=== PATIENT | female | born 1985 | race Caucasian/White ===

== ENCOUNTER → 2016-07-15 | Outpatient (CLI) | payer OTHER ==
[~2016-07-15] MED LIST: IBUP600T44 PO; MAGNSUS5; MTR600X PO; OXYC-57 PO; PRENTAB26 PO
[2016-07-15 20:44] LABS: URINE APPEARANCE CLEAR (CLEAR); URINE BILIRUBIN NEG (NEG); URINE COLOR YELLOW; URINE EPITHELIAL CELL AUTO >30 /lpf (0-5); URINE NITRITE NEG (NEG); UROBILINOGEN NEG (NEG)
[2016-07-15 20:56] LABS: MANUAL MICROSCOPIC REQUIRED? NO; REVIEW REQ? YES
== END | disposition home or self-care (01) ==
LOC: C.LABSPEC 20:17
PROVIDERS: ATTEND Obstetrics & Gynecology
DX: Z34.83 Encounter for supervision of other normal pregnancy, third trimester (principal); R80.9 Proteinuria, unspecified

== ENCOUNTER → 2016-07-22 | Outpatient (CLI) | payer OTHER ==
[2016-07-22 15:16] LABS: BASO % 0.2 %; BASO ABS # 0.02 K/uL (0-0.2); EOS % 1.2 %; HEMATOCRIT 36.3 % (37-47); IG% 0.5 %; LYMPH % 17.3 %; LYMPH ABS # 2.01 K/uL (1.2-3.4); MEAN CELL VOLUME 90.8 fL (80-100); MEAN CORPUSCULAR HEMOGLOBIN 31.3 pg (25-34); MEAN PLATELET VOLUME 10.4 fL (7.4-10.4); MONO % 7.3 %; NEUT % 73.5 %; PLATELET COUNT 307 K/uL (130-400); WHITE BLOOD COUNT 11.65 K/uL (4.8-10.8)
[2016-07-22 15:22] LABS: COMPLETE YES; MEAN CORPUSCULAR HGB CONC 34.4 g/dl (32-36)
[2016-07-22 15:43] LABS: ALB/GLOB RATIO 0.7 (0.9-2); ALKALINE PHOSPHATASE 162 U/L (45-117); ALT/SGPT 18 U/L (12-78); AST/SGOT 14 U/L (15-37); BLOOD UREA NITROGEN 5 mg/dl (7-18); BUN/CREATININE RATIO 10.8 (10-20); CARBON DIOXIDE 22 mmol/L (21-32); CHLORIDE 105 mmol/L (98-107); GLUCOSE 99 mg/dl (70-99); POTASSIUM 3.6 mmol/L (3.5-5.1); SODIUM 139 mmol/L (136-145); URIC ACID 3.4 mg/dl (2.6-7.2)
== END | disposition home or self-care (01) ==
LOC: C.LAB1850 14:36
PROVIDERS: ATTEND Obstetrics & Gynecology
DX: O13.9 Gestational [pregnancy-induced] hypertension without significant proteinuria, unspecified trimester (principal); Z3A.00 Weeks of gestation of pregnancy not specified

== ENCOUNTER 2016-08-07 10:26 | Inpatient (IN) | payer OTHER ==
[2016-08-07] VITALS (11 sets, daily range): BP systolic 118–142; BP diastolic 64–91; PULSE 72–78; TEMP 36.4–36.7; O2SAT 97–100; Ht 154.9 cm; Wt 60.0 kg
[~2016-08-07] VITALS: Ht 154.9 cm; Wt 60.0 kg
[~2016-08-07 10:26] MED LIST changes: -MTR600X PO; -PRENTAB26 PO
[2016-08-07] MEDS ORDERED: PRENTAB26 PO (10:52)
[2016-08-07] MEDS ORDERED: LACTATED RINGER'S 1000ML 1,000 ML IV ONE (11:30)
[2016-08-07] MEDS ORDERED: CITRIC ACID/SODIUM CITRATE 15 ML UDC PO ONE (11:30)
[2016-08-07] MEDS ORDERED: OXYTOCIN INJ 10 UNITS/ML VIAL ONE (11:36)
[2016-08-07] MEDS ORDERED: MoRPHine SULFATE PF 1 MG/ML 10 ML AMP/VIAL ONE (11:36)
[2016-08-07] MEDS ORDERED: FENTANYL CITRATE INJ 50 MCG/1 ML 2 ML VIAL ONE (11:36)
[2016-08-07] MEDS ORDERED: CEFAZOLIN IV 2,000 MG in DEXTROSE 5% 50ML 50 ML IV SCH (11:45)
--- NOTE | 2016-08-07 11:47 | Medical Student: [facility] ---
Med Student History & Physical Date of Service Aug 07, 2016. Chief Complaint R/O Rupture Of Membranes History of Present Illness Source: patient, partner 31 year old , CUFF RUNNER 08/10 by dating US, 39 weeks 4 days GA, here for premtaure rupture of membranes. Yesterday, patient experienced lower abdominal cramping. Around 0400 on 08/07, the patient felt a gush of fluid from her vagina and came today for possible PROM. Current lower abdominal pain level is 5/10. Patient did eat a full breakfast at 0730 today. Patient denies PALOMINO, blurry vision , dizziness, leg pain, leg redness, leg swelling, N/V, and dysuria. At her visit on 08/04/16, her cervix was closed and the baby was vertex down. Current history is significant for elevated blood pressure at 2 visits and a failed glucose screening at 28 weeks GA. Patient never completed a 2 hour glucose tolerance test. Home glucose tests were WNL. She was not treated as GDM. Patient did not receive flu or Tdap immunizations during . Patient is currently feeling movement and contractions. Patient feels fluid leaks, but no bleeding. Past medical history is insignificant. Gynecological history is insignificant. No history of abnormal pap smears or STDs. Obstetrical history is significant for preeclampsia and breech position in last resulting in C/S at 38 weeks GA. Patient's blood type is O+, negative antibody screen, rubella immune, VDRL/RPR nonreactive, negative HbsAG and HiV, negative G & C, and negative GBS culture OB History Obstetrical history significant for last complicated by preeclampsia and and breech position. This resulted in a C/S at 38 weeks GA in 2007. Baby was 7 lbs 9 oz. INFORMATION SYSTEMS ARCHITECT History Gynecologic history is insignificant. No history of abnormal pap smears or STDs. Menarche began at age 12 or 13. Menstruation occurs every 28 days and last 5-7 days. No excessive bleeding or cramping during periods. Past Medical History No past medical history Past Surgical History Past surgical history significant for C/S in 2007 and appendectomy in 2009. Family History Family history is insignificant Social History Smoking Status: Never Smoker Smokeless Tobacco Use: No Alcohol Use: none Drug Use: none Marital Status: Housing status: lives with significant other Occupational Status: unemployed Allergies Coded Allergies: No Known Allergies (Verified , 08/07/16) Home Medications Multivit/Min/Iron/Fol Ac/Pren ( Vitamin), 1 TAB PO DAILY Review of Systems Constitutional: No fever Eyes: No worsening of vision ENT: No hearing loss Respiratory: No cough, No shortness of breath Cardiovascular: No chest pain, No palpitations Abdomen: + pain (5/10 lower abdominal pain ), No constipation, No diarrhea, No nausea, No vomiting Genitourinary - Female: No dysuria Integumentary: No rash Physical Exam General Appearance: WD/WN, no apparent distress Respiratory/Chest: lungs clear, normal breath sounds, no respiratory distress Cardiovascular: regular rate, rhythm, no edema, no gallop, no JVD, no murmur Extremities: normal inspection, no calf tenderness, no pedal edema Skin: normal color, warm/dry cervical exam: fingertip dilated, 50% effaced, -3 station Neuro: bicep and patellar reflexes b/l 2 + Monitoring External Monitor: heart tracing category 1: HR 142, moderate variability, present accelerations, absent variable, late or early decelerations Tocodynamometer: contractions every 4 minutes Assessment and Plan 31 year old , CUFF RUNNER 08/10 by dating US, 39 weeks 4 days GA, here for premtaure rupture of membranes. Sterile speculum pooling, nitrazine test, and ferning were all positive. PROM occured at 0430 this morning. Membranes have been rupture for 7 hours. Patient is currently in latent stage 1 of labor. Patient and decided to go forward with a C/S instead of a . All risk ands complications were discussed and understood. Anesthesia agreed to proceed now despite full breakfast at 0730.
[2016-08-07] MEDS ORDERED: ATROPINE SULFATE 0.1 MG/ML 5ML SYR IV PRN (12:00)
[2016-08-07] MEDS ORDERED: FENTANYL CITRATE INJ 50 MCG/1 ML 2 ML VIAL IV PRN (12:00)
[2016-08-07] MEDS ORDERED: ONDANSETRON INJ 2 MG/ML 2 ML VIAL IV PRN ×2 (12:00→16:15)
[2016-08-07] MEDS ORDERED: EpHEDrine SULFATE INJ 50 MG/ML AMP IV PRN ×2 (12:00→14:00)
[2016-08-07 12:07] LABS: BASO % 0.3 %; BASO ABS # 0.03 K/uL (0-0.2); COMPLETE YES; EOS % 0.8 %; HEMATOCRIT 35.4 % (37-47); IG% 0.3 %; LYMPH % 19.3 %; LYMPH ABS # 1.89 K/uL (1.2-3.4); MEAN CELL VOLUME 90.5 fL (80-100); MEAN CORPUSCULAR HEMOGLOBIN 30.9 pg (25-34); MEAN CORPUSCULAR HGB CONC 34.2 g/dl (32-36); MEAN PLATELET VOLUME 10.3 fL (7.4-10.4); MONO % 8.1 %; NEUT % 71.2 %; PLATELET COUNT 299 K/uL (130-400); RED BLOOD COUNT 3.91 M/uL (4.2-5.4); WHITE BLOOD COUNT 9.79 K/uL (4.8-10.8)
--- NOTE | 2016-08-07 12:07 | HISTORY & PHYSICAL EXAMINATION ---
DATE OF ADMISSION: 08/07/2016 ADMISSION DIAGNOSES: 1. Intrauterine at 39 and 4/7th weeks. 2. History of previous section for preeclampsia and breech. 3. Premature spontaneous rupture of membranes. HISTORY OF PRESENT ILLNESS: Petra is a 31-year-old 2, para 1-0-0-1 with an EDC of 08/10/2016 based on an [facility] who presents to labor and delivery complaining of rupture of membranes at 4:00, she has continued to leak clear fluid. No vaginal bleeding. She notices some mild cramping, but no significant contractions and good movement. This has been essentially uncomplicated. Her previous section was for breech presentation with preeclampsia at admission. The patient did fail her 28-week glucose tolerance since with the result of 152, but never performed a 2-hour glucose tolerance test. She notes that she had bought a monitor and was checking her sugars at home and they were "normal". PAST MANAGER INSIDE HISTORY: As noted above. This was a section documented to be primary low transverse to deliver a 6+ pound baby, performed here by the [facility] doctors. ALLERGIES: No known drug allergies. MEDICATIONS: vitamin. PAST MEDICAL HISTORY: She is healthy. Denies thyroid disease, asthma, heart disease, heart murmur, diabetes, kidney or liver problems. She has a history of chickenpox. PAST SURGICAL HISTORY: Includes 2007, appendectomy in 2009. SOCIAL HISTORY: The patient denies tobacco, alcohol or drug use, lives with her significant other and son. PHYSICAL EXAMINATION: GENERAL: This is a well-developed, well-nourished white female, in no acute distress. VITAL SIGNS: She is afebrile and vital signs are stable. ABDOMEN: Soft, gravid and nontender. EXTREMITIES: Benign. PELVIS: Sterile speculum exam shows gross pooling, positive ferning and positive nitrazine. Tocodynamometer shows her brook[place] irregularly. External monitor shows the fetus to be in the 130s with moderate variability, accels to 150 and no decels. Cervical exam reveals the cervix to be fingertip, 50%, minus 3, mid and moderate. LABORATORY DATA: Blood type O positive, antibody negative, rubella immune, RPR nonreactive, hepatitis B negative, HIV negative, chlamydia and gonorrhea cultures negative. Group B strep negative. Sixteen week GTT 107, 28-week GTT 152. ASSESSMENT: This is a 31-year-old white female 2, para 1-0-0-1 who presents at 39 and 4/7th weeks with gross premature rupture of membranes. There is no evidence of labor. The fetus is category 1. The patient has a history of a previous section for breech presentation at 37 weeks for preeclampsia. Unfortunately, the patient has ruptured her membranes well prior to labor. She has been ruptured for almost 8 hours now and she is not bro[place] significantly and her cervix is not significantly changed from her previous exam. We discussed the options which would include proceeding now with a repeat section versus expectant management. We discussed the risks of expectant management including the risks of infection, the potential of not knowing when or if her body will kick into labor, the potential need for Pitocin, the risks of a trial of labor and the back including 1% risk of uterine rupture. We discussed the risks of section including anesthesia, bleeding requiring transfusion, infection, poor wound healing, damage to surrounding structures including bowel, bladder, vessels, nerves and ureters that may require further surgery, hospitalization or intervention as well as the other risks associated with surgery including heart attack, blood clot, stroke or . After weighing all of these options, the patient and her have decided to proceed with delivery. Consent was reviewed and signed. Anesthesia was notified. The patient will be admitted and will proceed with repeat section.
[2016-08-07] MEDS ORDERED: METHYLERGONOVINE MALEATE 0.2 MG/ML AMP ONE (13:06)
[2016-08-07] MEDS ORDERED: METHYLERGONOVINE MALEATE 0.2 MG/ML AMP IM ONE (13:06)
[2016-08-07] MEDS ORDERED: DIPHTHERIA/TETANUS/PERTUSSIS 0.5 ML SYR/VIAL IM. ONE (13:30)
[2016-08-07] MEDS ORDERED: SUPERCREAM 0.870 % 15GM JAR EXT PRN (13:30)
[2016-08-07] MEDS ORDERED: LANOLIN OINT EXT PRN ×2 (13:30)
[2016-08-07] MEDS ORDERED: HYDROCORTISONE ACETATE 25 MG SUPP PR PRN (13:30)
[2016-08-07] MEDS ORDERED: IBUPROFEN 600 MG TAB PO PRN (13:30)
[2016-08-07] MEDS ORDERED: DC PCA PRN (13:30)
[2016-08-07] MEDS ORDERED: BENZOCAINE 20% AER SPR 82.5 GM CAN EXT PRN (13:30)
--- NOTE | 2016-08-07 13:36 | [facility] Post Operative Brief Note ---
Immediate Operative Summary Operative Date Aug 07, 2016. Pre-Operative Diagnosis 1. Intrauterine at 39 4/7 Weeks 2. Premature Rupture of Membranes 3. Previous Caesarean Section 4. Desires Repeat Caesarean Section Post-Operative Diagnosis Same as Preop Procedure(s) Performed Live Female at [address] Peraza Rag Washer Surgeon(s) Gwen Keller RN Estimated Blood Loss 600 ml Findings viable female infant, nl utx/tubes/ovs bilaterally Fluids (cc crystalloids) 1600cc Specimens Placenta (Hold) Cord Blood Drains araiza Anesthesia spinal Complication(s) None Disposition L&D
[2016-08-07] MEDS ORDERED: OXYTOCIN INJ 20 UNITS in LACTATED RINGER'S 1000ML 1,000 ML IV SCH (13:45)
[2016-08-07] MEDS ORDERED: NALOXONE HCL INJ 0.08 MG in SYRINGE 1.8 ML IV PRN (13:50)
[2016-08-07] MEDS ORDERED: LACTATED RINGER'S 1000ML 500 ML IV PRN (13:50)
[2016-08-07] MEDS ORDERED: SODIUM CHLORIDE 0.9% 1000ML 1,000 ML IV PRN (13:50)
[2016-08-07] MEDS ORDERED: NALOXONE HCL INJ 1 MG in SODIUM CHLORIDE 0.9% 1000ML 1,000 ML IV PRN (13:50)
--- NOTE | 2016-08-07 13:51 | Anesthesiology Progress Note ---
Anesthesia Post Op Note Date & Time Aug 07, 2016 at 13:51 Notes Mental Status: alert / awake / arousable, participated in evaluation Pt Amnestic to Procedure: Yes Nausea / Vomiting: adequately controlled Pain: adequately controlled Airway Patency, RR, SpO2: stable & adequate BP & HR: stable & adequate Hydration State: stable & adequate Neuraxial Anesthesia: was administered, sensory block is resolving Anesthetic Complications: no major complications apparent
[2016-08-07] MEDS ORDERED: MoRPHine SULFATE PF 1 MG/ML 10 ML AMP/VIAL EPI PRN (14:00)
[2016-08-07] MEDS ORDERED: MEPERIDINE HCL 25 MG/ML CARP IV PRN (14:00)
[2016-08-07] MEDS ORDERED: NALOXONE HCL 0.4 MG/1 ML VIAL/CARP IV PRN (14:00)
[2016-08-07] MEDS ORDERED: DiphenhydrAMINE HCL 50 MG/ML VIAL IV PRN (14:00)
[2016-08-07] MEDS ORDERED: NO NARCOTICS OR SEDATIVES SCH (14:00)
[2016-08-07] MEDS ORDERED: NALBUPHINE HCL INJ 10 MG/ML AMP IV PRN (14:00)
[2016-08-07] MEDS ORDERED: KETOROLAC TROMETHAMINE 30 MG/ML VIAL IV. PRN (14:00)
--- NOTE | 2016-08-07 14:50 | Medical Student: [facility] ---
Immediate Operative Summary Operative Date Aug 07, 2016. Pre-Operative Diagnosis Term Intrauterine at 39 + 4 weeks and PROM Post-Operative Diagnosis same Procedure(s) Performed Repeat Low Transverse Section Surgeon Dr. Peraza Concrete Products Dispatcher Surgeon(s) Gwen Keller RN Estimated Blood Loss 600 mL Findings Viable female at 1300, weight pending Normal uterus, fallopian tubes, and ovaries Fluids (cc crystalloids) 1600 mL Specimens Placenta Umbilical Cord Cord Blood Drains Royal Catheter Anesthesia Spinal Complication(s) None Disposition L&D
--- NOTE | 2016-08-07 15:41 | OPERATIVE REPORT ---
DATE OF OPERATION: 08/07/2016 PREOPERATIVE DIAGNOSES: 1. Intrauterine at 39 and 4/7th weeks. 2. History of previous section for breech presentation. 3. Premature rupture of labor prior to the onset of labor. POSTOPERATIVE DIAGNOSES: Same. PROCEDURE: Repeat lower transverse section. SURGEON: Deidra Peraza MD. [employer] OFFICER: Ivy Keller RN and Carie Mckeon MS3. ANESTHESIA: Spinal. ESTIMATED BLOOD LOSS: 600 mL. FLUIDS: 1600 mL. URINE OUTPUT: 200 mL of clear yellow fluid drained from the bladder at the end of the procedure. INDICATIONS: The patient is a 2, para 1-0-0-1 at 39-4/7th weeks who presents with gross premature rupture of membranes prior to labor. Her cervix is fingertip, 50%, and high. We discussed the pluses and minuses and the risks and benefits of attempting a trial of labor versus repeat section given we would essentially be inducing her labor with Pitocin; she has decided on repeat section. FINDINGS: Viable female in cephalic presentation, weight and Apgars pending. Normal uterus, tubes, and ovaries were noted bilaterally. COMPLICATIONS: None. DRAINS: Royal. DISPOSITION: To recovery room in stable condition. PROCEDURE: The patient was taken to the operating room where she was identified verbally and by bracelet. She was seated on the operating table where spinal anesthetic was placed. She was then placed in dorsal supine position with a leftward tilt. A Royal catheter was placed sterilely and she was prepped and draped in normal sterile fashion. Anesthetic was tested and found to be adequate. A timeout was held identifying correct patient, procedure, positioning and preoperative antibiotics. A Pfannenstiel skin incision was made with the knife and taken down to the underlying layer of fascia with the knife and Bovie electrocautery. Bleeding was attended to with Bovie electrocautery. The fascia was incised in the midline and taken out laterally with scissors bilaterally. The superior edge of the fascial incision was grasped, elevated and the underlying layer of rectus muscle was taken off bluntly and with scissors. In a similar fashion, the inferior edge of the fascial incision was grasped, elevated and the underlying layer of rectus muscle was taken off bluntly and with scissors. The peritoneum was entered sharply and was taken superiorly and inferiorly sharply with scissors with good visualization of the bladder, the incision was stretched, the bladder blade was placed. The vesicouterine peritoneum was grasped with pickups, it was entered with scissors and taken out laterally with scissors. The bladder flap was created digitally. The bladder blade was placed. A hysterotomy incision was made with a knife. Clear fluid was noted on entering the uterus. The incision was stretched with the rubber mill operator's fingers. The rubber mill operator's hand was placed into the uterus. The head was delivered atraumatically through the hysterotomy incision. The nose and mouth were bulb suctioned. There was a nuchal cord x1 that was reduced and the rest of the was then delivered without difficulty. The nose and mouth were again bulb suctioned. Cord was clamped and cut. The infant was handed off to waiting ship harbor pilot for drying and attention. Cord blood and segment were obtained. The placenta was manually extracted, the uterus was cleared of all clot and debris with moistened laparotomy sponges. The hysterotomy incision was repaired in 2 layers of 0 Vicryl, the first in a running locked layer and second in an imbricating layer. The posterior cul-de-sac was irrigated and cleared of all clot and debris. The hysterotomy incision was again examined and found to be hemostatic. The uterus was interiorized. Hysterotomy incision was again inspected and found to be hemostatic. The rectus muscles were reapproximated in the midline and several interrupted sutures of 0 Vicryl. The fascia was then reapproximated to the midline with 0 Vicryl. The skin was irrigated and found to be hemostatic and the skin was closed with a subcuticular stitch of 4-0 Vicryl. All sponge, lap and needle counts were correct x2. The patient tolerated the procedure well and was taken to recovery room in stable condition. I attest to the content of the Intraoperative Record and any orders documented therein. Any exceptio ns are noted below.
[2016-08-07] MEDS: SIMETHICONE 80 MG CHEW PO SCH ×2 (17:50→19:46)
[2016-08-07] MEDS: DOCUSATE SODIUM 100 MG CAP PO SCH (19:46)
[2016-08-07] MEDS ORDERED: LACTATED RINGER'S 1000ML 1,000 ML IV SCH (21:45)
[2016-08-08] VITALS (12 sets, daily range): BP systolic 113–137; BP diastolic 59–85; PULSE 62–71; TEMP 36.6–37.3; O2SAT 96–99
--- NOTE | 2016-08-08 06:18 | Medical Student: [facility] ---
Med Student HOUSE MOTHER Progress Nt Date of Service Aug 08, 2016. Subjective conversation w/ patient Ambulation: limited ambulation (bed rest ) Voiding: araiza catheter in place (200 cc, yellow and clear ) Passing Gas: Yes Diet Tolerance: Regular Diet Lochia: Moderate Feeding Type: Breast Feeding Pain: 5/10 over incision Review of Systems Constitutional: No fever Respiratory: No cough, No shortness of breath Cardiac: No chest pain, No palpitations Abdomen: + constipation, + pain (5/10 over incision ), No diarrhea, No nausea, No vomiting Female : No dysuria Objective Vital Signs Date Time Temp Pulse Resp B/P Pulse Ox O2 Delivery O2 Flow Rate FiO2 08/08/16 05:00 16 98 08/08/16 04:15 36.6 62 18 113/59 98 Room Air 08/08/16 04:00 18 98 08/08/16 03:00 18 99 08/08/16 02:00 18 98 08/08/16 01:00 18 99 08/08/16 00:00 36.7 64 20 115/68 99 Room Air 08/08/16 00:00 16 96 08/08/16 00:00 99 Room Air 08/07/16 23:00 16 97 08/07/16 22:00 20 98 08/07/16 21:00 20 97 08/07/16 20:00 18 98 08/07/16 20:00 36.4 72 18 118/64 98 Room Air 08/07/16 19:00 18 98 08/07/16 17:55 36.7 78 16 136/78 100 Room Air 08/07/16 16:55 75 16 133/83 100 Room Air 08/07/16 16:25 36.7 78 16 137/91 98 Room Air 08/07/16 15:55 36.7 73 16 142/91 98 Room Air 08/07/16 15:55 16 98 08/07/16 15:55 Room Air 08/07/16 15:55 98 Room Air Physical Exam General Appearance: WELL-APPEARING, NO APPARENT DISTRESS Respiratory/Chest: lungs clear, normal breath sounds Cardiovascular: regular rate, rhythm, no edema, no gallop, no JVD, no murmur Abdomen: normal bowel sounds Fundus: Firm, Tender, Relation to Umbilicus (at umbilicus ) Extremities: non-tender, no pedal edema Laboratory Results Last 24 Hours Test 08/07/16 11:52 08/08/16 06:00 White Blood Count 9.79 K/uL Red Blood Count 3.91 M/uL Hemoglobin 12.1 g/dL Hematocrit 35.4 % Mean Corpuscular Volume 90.5 fL Mean Corpuscular Hemoglobin 30.9 pg Mean Corpuscular Hemoglobin Concent 34.2 g/dl Platelet Count 299 K/uL Mean Platelet Volume 10.3 fL Neutrophils (%) (Auto) 71.2 % Lymphocytes (%) (Auto) 19.3 % Monocytes (%) (Auto) 8.1 % Eosinophils (%) (Auto) 0.8 % Basophils (%) (Auto) 0.3 % Neutrophils # (Auto) 6.97 K/uL Lymphocytes # (Auto) 1.89 K/uL Monocytes # (Auto) 0.79 K/uL Eosinophils # (Auto) 0.08 K/uL Basophils # (Auto) 0.03 K/uL RDW Standard Deviation 40.6 fL RDW Coefficient of Variation 12.3 % Immature Granulocyte % (Auto) 0.3 % Immature Granulocyte # (Auto) 0.03 K/uL Medications Medications (Trade) Dose Ordered Sig/Zaheer Route Start Time Stop Time Status Last Admin Dose Admin Lactated Ringer's (Lr 1000ml) 1,000 ml @ 1,000 mls/hr Q1H ONCE IV 08/07/16 11:30 08/07/16 12:29 DC 08/07/16 11:45 1,000 MLS/HR Citric Acid/ Sodium Citrate 30 ml 30 ml ONE ONCE PO 08/07/16 11:30 08/07/16 11:39 DC 08/07/16 12:27 30 ML Cefazolin Sodium 2000 mg/Dextrose 60 ml @ 100 mls/hr PREOP@1145 IV 08/07/16 11:45 08/07/16 12:20 DC 08/07/16 12:28 100 MLS/HR Oxytocin 20 units/ Lactated Ringer's 1,002 ml @ 125 mls/hr Q8H1M IV 08/07/16 13:45 08/07/16 21:45 DC 08/07/16 13:59 125 MLS/HR Lactated Ringer's (Lr 1000ml) 1,000 ml @ 125 mls/hr Q8H IV 08/07/16 21:45 3/11/17 21:44 08/07/16 22:12 125 MLS/HR Docusate Sodium (coLACE CAP) 100 mg BID PO 08/07/16 20:00 09/06/16 19:59 08/07/16 19:46 100 MG Simethicone (Mylicon Chew Tab) 80 mg QID PO 08/07/16 17:00 09/06/16 16:59 08/07/16 19:46 80 MG Methylergonovine Maleate (Methergine Inj) 0.2 mg ONE ONCE IM 08/07/16 13:06 08/07/16 14:46 DC 08/07/16 13:06 0.2 MG Ondansetron HCl (Zofran Inj) 4 mg Q4H PRN IV 08/07/16 16:15 09/06/16 16:14 08/07/16 16:23 4 MG Assessment and Plan Post- Day Number: 1 Continue Routine Care: 31 year old PP day 1. Repeat low transverse C/S at 39 weeks 4 days, previous C/S and premature rupture of membranes. -All vitals stable except slightly hypotensive at 113/59 -Blood type O +, rubella immune -Doing well clinically -encourage bedrest -tolerating PO diet -pain 5/10 over incision, not controlled with any medication -discharge home in 1 or 2 days
[2016-08-08] MEDS ORDERED: DC INTRASPINAL MORPHINE ONE (06:30)
[2016-08-08] MEDS ORDERED: OXYCODONE/ACETAMINOPHEN 5-325 TAB PO PRN ×2 (06:30)
[2016-08-08] MEDS ORDERED: MEPERIDINE HCL 50 MG/ML CARP IV PRN (06:30)
[2016-08-08] MEDS ORDERED: MEPERIDINE HCL 75 MG/ML CARP IV PRN (06:30)
[2016-08-08] MEDS ORDERED: KETOROLAC TROMETHAMINE 30 MG/ML VIAL IV. PRN (06:30)
--- NOTE | 2016-08-08 06:54 | Progress Note ---
Subjective Aug 08, 2016. Subjective conversation w/ patient, physical exam Ambulation: limited ambulation Voiding: voiding difficulty (Araiza removed this morning, no voiding yet) Passing Gas: Yes Diet Tolerance: Regular Diet Lochia: Moderate Feeding Type: Breast Feeding Pain: No pain reported this morning Review of Systems Constitutional: No chills, No fever Respiratory: No cough, No shortness of breath Cardiac: No chest pain Breast: No breast pain Abdomen: No nausea, No pain, No vomiting Female : No dysuria Objective Vital Signs Date Time Temp Pulse Resp B/P Pulse Ox O2 Delivery O2 Flow Rate FiO2 08/08/16 06:00 18 97 08/08/16 05:00 16 98 08/08/16 04:15 36.6 62 18 113/59 98 Room Air 08/08/16 04:00 18 98 08/08/16 03:00 18 99 08/08/16 02:00 18 98 08/08/16 01:00 18 99 08/08/16 00:00 36.7 64 20 115/68 99 Room Air 08/08/16 00:00 16 96 08/08/16 00:00 99 Room Air 08/07/16 23:00 16 97 08/07/16 22:00 20 98 08/07/16 21:00 20 97 08/07/16 20:00 18 98 08/07/16 20:00 36.4 72 18 118/64 98 Room Air 08/07/16 19:00 18 98 08/07/16 17:55 36.7 78 16 136/78 100 Room Air 08/07/16 16:55 75 16 133/83 100 Room Air 08/07/16 16:25 36.7 78 16 137/91 98 Room Air 08/07/16 15:55 36.7 73 16 142/91 98 Room Air 08/07/16 15:55 16 98 08/07/16 15:55 Room Air 08/07/16 15:55 98 Room Air Physical Exam General Appearance: WELL-APPEARING, WD/WN, NO APPARENT DISTRESS Respiratory/Chest: lungs clear, normal breath sounds Cardiovascular: regular rate, rhythm, no gallop, no murmur Abdomen: non tender, soft Fundus: Firm, Relation to Umbilicus (1cm below umbilicus) Incision Description: Clean, Dry & Intact Extremities: no calf tenderness Laboratory Results Last 24 Hours Test 08/07/16 11:52 08/08/16 06:00 White Blood Count 9.79 K/uL Red Blood Count 3.91 M/uL Hemoglobin 12.1 g/dL Hematocrit 35.4 % Mean Corpuscular Volume 90.5 fL Mean Corpuscular Hemoglobin 30.9 pg Mean Corpuscular Hemoglobin Concent 34.2 g/dl Platelet Count 299 K/uL Mean Platelet Volume 10.3 fL Neutrophils (%) (Auto) 71.2 % Lymphocytes (%) (Auto) 19.3 % Monocytes (%) (Auto) 8.1 % Eosinophils (%) (Auto) 0.8 % Basophils (%) (Auto) 0.3 % Neutrophils # (Auto) 6.97 K/uL Lymphocytes # (Auto) 1.89 K/uL Monocytes # (Auto) 0.79 K/uL Eosinophils # (Auto) 0.08 K/uL Basophils # (Auto) 0.03 K/uL RDW Standard Deviation 40.6 fL RDW Coefficient of Variation 12.3 % Immature Granulocyte % (Auto) 0.3 % Immature Granulocyte # (Auto) 0.03 K/uL Medications Current Inpatient Medications Medications (Trade) Dose Ordered Sig/Zaheer Route Start Time Stop Time Status Last Admin Dose Admin Lactated Ringer's (Lr 1000ml) 1,000 ml @ 125 mls/hr Q8H IV 08/07/16 21:45 09/06/16 21:44 08/07/16 22:12 125 MLS/HR Ketorolac Tromethamine (Toradol Inj) 30 mg Q6H PRN IV. 08/08/16 06:30 08/13/16 06:29 Meperidine HCl (Demerol Inj) 50 mg Q4H PRN IV 08/08/16 06:30 08/22/16 06:29 Meperidine HCl (Demerol Inj) 75 mg Q4H PRN IV 08/08/16 06:30 08/22/16 06:29 Oxycodone/ Acetaminophen (Percocet 5-325mg Tab) 1 tab Q4H PRN PO 08/08/16 06:30 08/22/16 06:29 Oxycodone/ Acetaminophen (Percocet 5-325mg Tab) 2 tab Q4H PRN PO 08/08/16 06:30 08/22/16 06:29 Ibuprofen (Motrin Tab) 600 mg Q4H PRN PO 08/07/16 13:30 09/06/16 13:29 Prenat Multivit/ [employer]/Iron/Folic Ac ( Vitamin Tab) 1 tab DAILY PO 08/08/16 08:00 09/07/16 07:59 Docusate Sodium (coLACE CAP) 100 mg BID PO 08/07/16 20:00 09/06/16 19:59 08/07/16 19:46 100 MG Cocaine HCl (Supercream 0.870% Cr) BID PRN EXT 08/07/16 13:30 08/21/16 13:29 Lanolin (Lanolin Oint) PRN PRN EXT 08/07/16 13:30 09/06/16 13:29 Hydrocortisone Acetate (Anusol Hc Supp) 25 mg BID PRN ND 08/07/16 13:30 09/06/16 13:29 Benzocaine (Dermoplast Aero Spr) 1 appln PRN PRN EXT 08/07/16 13:30 09/06/16 13:29 Simethicone (Mylicon Chew Tab) 80 mg QID PO 08/07/16 17:00 09/06/16 16:59 08/07/16 19:46 80 MG Diphenhydramine HCl (Benadryl Cap) 25 mg QID PRN PO 08/08/16 06:30 09/07/16 06:29 Ondansetron HCl (Zofran Inj) 4 mg Q4H PRN IV 08/07/16 16:15 09/06/16 16:14 08/07/16 16:23 4 MG Assessment and Plan Post-Op Day#: 1 Continue Routine Care: - Vital Signs reviewed and WNL (temp max 36.6) - Blood Type: O+, GBS Negative, Rubella Immune - Encourage Ambulation today - Monitor voiding, araiza catheter removed this morning - Tolerating PO Diet - Minor incisional pain but refusing pain medications Resident Physician Supervision Note: I interviewed and examined the patient. Discussed with Dr. Abrams and agree with findings and plan as documented in the note. Any exceptions or clarifications are listed here: None Documented By: Deidra Peraza
[2016-08-08 07:04] LABS: BASO % 0.2 %; BASO ABS # 0.02 K/uL (0-0.2); COMPLETE YES; EOS % 0.6 %; HEMATOCRIT 32.5 % (37-47); IG% 0.4 %; LYMPH % 15.2 %; LYMPH ABS # 1.75 K/uL (1.2-3.4); MEAN CELL VOLUME 90.5 fL (80-100); MEAN CORPUSCULAR HEMOGLOBIN 31.2 pg (25-34); MEAN CORPUSCULAR HGB CONC 34.5 g/dl (32-36); MEAN PLATELET VOLUME 10.4 fL (7.4-10.4); MONO % 6.8 %; NEUT % 76.8 %; PLATELET COUNT 237 K/uL (130-400); RED BLOOD COUNT 3.59 M/uL (4.2-5.4); WHITE BLOOD COUNT 11.52 K/uL (4.8-10.8)
[2016-08-08] MEDS: DOCUSATE SODIUM 100 MG CAP PO SCH ×2 (08:00→20:06)
[2016-08-08] MEDS: SIMETHICONE 80 MG CHEW PO SCH ×3 (08:00→20:00)
[2016-08-08] MEDS: PRENATAL VITAMIN TAB PO SCH (08:00)
--- NOTE | 2016-08-09 06:39 | Progress Note ---
Subjective Aug 09, 2016. Subjective conversation w/ patient, conversation w/ family Ambulation: ambulating normally Voiding: no voiding problems, voiding difficulty (Royal removed this morning, no voiding yet) Passing Gas: Yes Diet Tolerance: Regular Diet Lochia: Moderate Feeding Type: Breast Feeding Pain: No pain reported this morning Review of Systems Constitutional: No chills, No fever Respiratory: No cough, No shortness of breath Cardiac: No chest pain Breast: No breast pain Abdomen: No nausea, No pain, No vomiting Female : No dysuria Objective Vital Signs Date Time Temp Pulse Resp B/P Pulse Ox O2 Delivery O2 Flow Rate FiO2 08/08/16 23:40 Room Air 08/08/16 23:40 36.8 70 18 137/83 Room Air 08/08/16 15:45 Room Air 08/08/16 15:45 37.3 70 20 133/85 98 Room Air 08/08/16 12:05 36.7 67 18 124/84 98 Room Air 08/08/16 07:30 Room Air 08/08/16 07:30 36.9 71 18 120/79 99 Room Air Physical Exam General Appearance: WELL-APPEARING, WD/WN, NO APPARENT DISTRESS Respiratory/Chest: lungs clear, normal breath sounds Cardiovascular: regular rate, rhythm, no gallop, no murmur Abdomen: non tender, soft Fundus: Firm, Relation to Umbilicus (1cm below umbilicus) Incision Description: Clean, Dry & Intact Extremities: no calf tenderness Laboratory Results Last 24 Hours Test 08/08/16 06:38 08/09/16 06:00 White Blood Count 11.52 K/uL Red Blood Count 3.59 M/uL Hemoglobin 11.2 g/dL Hematocrit 32.5 % Mean Corpuscular Volume 90.5 fL Mean Corpuscular Hemoglobin 31.2 pg Mean Corpuscular Hemoglobin Concent 34.5 g/dl Platelet Count 237 K/uL Mean Platelet Volume 10.4 fL Neutrophils (%) (Auto) 76.8 % Lymphocytes (%) (Auto) 15.2 % Monocytes (%) (Auto) 6.8 % Eosinophils (%) (Auto) 0.6 % Basophils (%) (Auto) 0.2 % Neutrophils # (Auto) 8.85 K/uL Lymphocytes # (Auto) 1.75 K/uL Monocytes # (Auto) 0.78 K/uL Eosinophils # (Auto) 0.07 K/uL Basophils # (Auto) 0.02 K/uL RDW Standard Deviation 40.3 fL RDW Coefficient of Variation 12.1 % Immature Granulocyte % (Auto) 0.4 % Immature Granulocyte # (Auto) 0.05 K/uL Medications Current Inpatient Medications Medications (Trade) Dose Ordered Sig/Zaheer Route Start Time Stop Time Status Last Admin Dose Admin Lactated Ringer's (Lr 1000ml) 1,000 ml @ 125 mls/hr Q8H IV 08/07/16 21:45 09/06/16 21:44 08/07/16 22:12 125 MLS/HR Ketorolac Tromethamine (Toradol Inj) 30 mg Q6H PRN IV. 08/08/16 06:30 08/13/16 06:29 Meperidine HCl (Demerol Inj) 50 mg Q4H PRN IV 08/08/16 06:30 08/22/16 06:29 Meperidine HCl (Demerol Inj) 75 mg Q4H PRN IV 08/08/16 06:30 08/22/16 06:29 Oxycodone/ Acetaminophen (Percocet 5-325mg Tab) 1 tab Q4H PRN PO 08/08/16 06:30 08/22/16 06:29 Oxycodone/ Acetaminophen (Percocet 5-325mg Tab) 2 tab Q4H PRN PO 08/08/16 06:30 08/22/16 06:29 Ibuprofen (Motrin Tab) 600 mg Q4H PRN PO 08/07/16 13:30 09/06/16 13:29 08/08/16 15:36 600 MG Prenat Multivit/ [place]/Iron/Folic Ac ( Vitamin Tab) 1 tab DAILY PO 08/08/16 08:00 09/07/16 07:59 08/08/16 08:00 1 TAB Docusate Sodium (coLACE CAP) 100 mg BID PO 08/07/16 20:00 09/06/16 19:59 08/08/16 20:06 100 MG Cocaine HCl (Supercream 0.870% Cr) BID PRN EXT 08/07/16 13:30 08/21/16 13:29 Lanolin (Lanolin Oint) PRN PRN EXT 08/07/16 13:30 09/06/16 13:29 Hydrocortisone Acetate (Anusol Hc Supp) 25 mg BID PRN GA 08/07/16 13:30 09/06/16 13:29 Benzocaine (Dermoplast Aero Spr) 1 appln PRN PRN EXT 08/07/16 13:30 09/06/16 13:29 Simethicone (Mylicon Chew Tab) 80 mg QID PO 08/07/16 17:00 09/06/16 16:59 08/08/16 20:00 80 MG Diphenhydramine HCl (Benadryl Cap) 25 mg QID PRN PO 08/08/16 06:30 09/07/16 06:29 Ondansetron HCl (Zofran Inj) 4 mg Q4H PRN IV 08/07/16 16:15 09/06/16 16:14 08/07/16 16:23 4 MG Assessment and Plan Post-Op Day#: 2 Continue Routine Care: -Vital Signs reviewed and WNL (temp max 36.8) - Blood Type: O+, GBS Negative, Rubella Immune - Encourage Ambulation today - Tolerating PO Diet - No pain reported this morning - Discharge today Resident Physician Supervision Note: I was present with Dr. Abrams during the history and exam. I discussed the case with the resident and agree with the findings and plan as documented in the note. Any exceptions or clarifications are listed here: doing well, eating, voiding, ambulating, good pain control. wants to go home. instructions reviewed. f/u 6wks. Documented By: Kandy Padilla
--- NOTE | 2016-08-09 06:41 | Discharge Instructions ---
Discharge Instructions Admission Reason for Admission: R/O Rupture Of Membranes Discharge Discharge Diagnosis / Problem: Cesarian Section Discharge Goals Goal(s): Routine recovery after Medications Continue Dispensed Medications: supercream, dermaplast, tucks, lansinoh Activity Recommendations Activity Limitations: per Instructions/Follow-up section . Instructions / Follow-Up Instructions / Follow-Up ACTIVITY RECOMMENDATIONS: * Gradual return to full activity over the next 2-3 weeks. * No lifting - nothing heavier than baby over the next 2-3 weeks. * Do not engage in vigorous exercise, sexual activity or sports until cleared by your physician. * Do not drive or operate any motorized equipment until cleared by your physician. * You may shower/bathe daily. MEDICATIONS: For discomfort or pain, you may use Acetaminophen (Tylenol), Ibuprofen (Advil), or Naproxen (Aleve) following the package directions. For constipation you may use Colace following the package directions. BREAST CARE: If you are not breast feeding: * Wear a supportive bra 24 hours a day for one to two weeks. * Avoid stimulating your breasts and nipples as much as possible during the first few weeks after delivery. * When taking a shower, have the warm water hit your back, not breasts. * When your breasts feel full, apply ice packs. Usually three to four times a day helps ease the discomfort. * Take a mild pain medication (Tylenol / Motrin) when you are uncomfortable. If breast feeding: * Use breast milk to lubricate nipples. Lansinoh cream may be used for sore nipples. You do not need to remove cream prior to breast feeding. If using a different brand of cream, check the label for directions regarding removal of cream prior to nursing. * Wear a supportive bra. * If having problems with breasts or breast feeding, call a infrastructure consultant or your health care provider. SPECIAL CARE INSTRUCTIONS: When you are discharged from the hospital, it is important for you to follow the instructions listed below: * During the first week at home, you should be able to care for yourself and your baby. In addition, the usual light household activities are encouraged. * Limit your activities to the way you feel. Do not try to clean the house or move furniture. Be sensible. * If you actively engage in sports and have done so up until the time of your delivery, you may resume these activities as soon as you feel able. This may take up to one month or even longer. Use good judgment. * Continue to take your vitamins for at least six weeks after the of your baby. * Your diet need not be limited unless you were on a special diet before your delivery. Breast-feeding mothers need around 2500 calories per day and at least 64-80 ounces of fluid per day (8 to 10 glasses). * You should eat foods from the four major food groups. Crash diets or fad diets are to be avoided. Eating lean meats, fresh fruits and vegetables, low-fat dairy products, high fiber foods and a regular exercise program, will help you get back to your pre- weight without putting your health at risk. * Constipation is sometimes a problem after delivery. Take a mild laxative as needed. If breast feeding, Milk of Magnesia is acceptable to use. You may use a suppository or Fleets enema. * A daily shower or tub bath is suggested. Wash incision daily with warm soapy water and pat dry. It doesn't need to be covered unless drainage is present. * A bloody vaginal discharge will usually continue until around four weeks . A small amount of bleeding may continue for as long as six weeks. Vaginal discharge changes from the bright red bleeding after delivery to pink then brownish and finally yellowish-pink before becoming white and disappearing. * Bleeding may increase with activity. Your first period may come in 4-8 weeks. If you are breast feeding, your period may be delayed even longer. * [place] (sex) can begin whenever both you and your partner feel comfortable and do not have any form of genital infection. It is recommended that you wait at least six weeks for internal and external healing to occur. If you have questions, please talk to your health care practitioner. A condom should be used to prevent infection and . * Foreplay, gentle intercourse and lubrication is very important the first several times to prevent pain. A water-based lubricant such as K-Y jelly or Astroglide may be used. * If you have RH negative blood and your baby is RH positive, you will receive RHOGAM by injection prior to discharge. The nurse will give you a card to keep with you that has the date and place that you received RHOGAM after delivery. * During your care, you had a Rubella screen done to check for the presence of rubella antibodies in your blood. If your test was negative, you will receive a Rubella vaccine prior to discharge. This vaccine may cause a fever, soreness at the injection site and flu-like symptoms. If these symptoms persist, notify your health care practitioner. is not advised for one month after a Rubella vaccine. * Verbalizes understanding of car seat law as reviewed with patient nursing. * Car Seat hand-out given and reviewed with patient by nursing. * Shaken baby information reviewed with patient by nursing. Call you doctor if: * Heavy bleeding (saturating several pads an hour) or passing clots the size of your fist. * A fever >101 degrees F (38.3 degrees C) on two occasions four hours apart and /or chills. * Unusual pain in the pelvic or vaginal areas. * Call the doctor for any increased redness, drainage or swelling around the incision and any pain unrelieved by prescribed pain medication. * "Baby Blues" lasting longer than two weeks. If you have any questions or concerns, call your health care practitioner at . FOLLOW UP VISIT: * Please call the office at to schedule a 6 week examination. It is important you keep this appointment. It is important for you to make arrangements for either yearly or twice yearly check-ups thereafter. Current Hospital Diet Patient's current hospital diet: Regular Diet Discharge Diet Recommended Diet: Regular Diet Procedures Procedures Performed: Live Female Infant at 1300 Pending Studies Studies pending at discharge: no Medical Emergencies . Who to Call and When: Medical Emergencies: If at any time you feel your situation is an emergency, please call 911 immediately. . Non-Emergent Contact Non-Emergency issues call your: [employer] . . "Provider Documentation" section prepared by Aquilse Abrams. VTE Core Measure Inpt VTE Proph given/why not?: Treatment not indicated
[2016-08-09 07:26] LABS: HEMATOCRIT 33.7 % (37-47)
[2016-08-09] MEDS: PRENATAL VITAMIN TAB PO SCH (08:07)
[2016-08-09] MEDS: SIMETHICONE 80 MG CHEW PO SCH ×2 (08:07→12:44)
[2016-08-09] MEDS: DOCUSATE SODIUM 100 MG CAP PO SCH (08:07)
[2016-08-09 08:20] VITALS: BP 129/82; PULSE 78; TEMP 36.7
[2016-08-09] MEDS ORDERED: MTR600X PO (08:20)
[2016-08-09] MEDS ORDERED: OXYC-57 PO (08:20)
[2016-08-09 10:47] VITALS: BP_DIAS 82; PULSE 78; TEMP 36.7
--- NOTE | 2016-08-13 09:27 | DISCHARGE SUMMARY ---
ADMISSION DIAGNOSES: 1. Intrauterine at 39-4/7 weeks. 2. History of previous section for preeclampsia and breech. 3. Premature spontaneous rupture of membranes. DISCHARGE DIAGNOSIS: Same. PROCEDURE: Repeat lower transverse section. HISTORY OF PRESENT ILLNESS: Petra is a 31-year-old 2, para 1-0-0-1 with an EDC of 08/10/2016 based on [facility] by [facility], who presents to labor and delivery complaining of rupture of membranes at 4:00. She has continued to leak clear fluid. She notes no vaginal bleeding. She notes some mild cramping, but no significant contractions and good movement. This has essentially been uncomplicated. Her previous section was for breech presentation with preeclampsia at admission at 35 weeks. The patient did fail her 28-week glucose tolerance test with the result of 152, but never had a 2-hour glucose tolerance test performed. She notes that she had bought a monitor and was checking her sugars at home and they were "normal." For the rest of the detailed history and physical, please see her dictated history and physical. ASSESSMENT: This is a 31-year-old white female 2, para 1-0-0-1, who presents at 39-4/7 weeks with gross and premature rupture of membranes. There is no evidence of labor. The fetus is category 1. The patient had a previous section for breech presentation at 37 weeks for preeclampsia. Unfortunately, she has ruptured her membranes prior to labor, has been ruptured for almost 8 hours now, not [place] significantly and her cervix is unfavorable revealing it to be fingertip, 50% effaced, -3 station, mid position and moderate consistency. We discussed the possibility of expectant management or in using Pitocin for augmentation or proceeding with primary section. The risks, benefits and side effects of all of these were discussed with the patient and they have decided to proceed with section. HOSPITAL COURSE: The patient was admitted and underwent a repeat lower transverse section without difficulty to deliver a viable . ESTIMATED BLOOD LOSS: 600 mL. Normal uterus, tubes and ovaries were noted at the time of surgery. The patient's postoperative course was uncomplicated. She tolerated a regular diet, ambulated without difficulty, voided after removal of her Royal catheter and her pain was well controlled on oral pain medications. She was discharged home on postoperative day #2 with Percocet for pain as well as [id number] ibuprofen. Her discharge H\\T\\H was 11.1 and 33.7.
== END 2016-08-09 14:45 | disposition home or self-care (01) | DRG 766 ==
LOC: C.LD 10:26 → C.OPB 10:26 → C.LD 11:36 → C.OPB 11:36 → C.OBG 16:12
PROVIDERS: ADMIT Obstetrics & Gynecology; ATTEND Obstetrics & Gynecology
PROC: 10D00Z1 Extraction of Products of Conception, Low, Open Approach (ICD-10-PCS; principal; 2016-08-07 11:50)
DX: O42.92 Full-term premature rupture of membranes, unspecified as to length of time between rupture and onset of labor (principal); O34.219 Maternal care for unspecified type scar from previous cesarean delivery; O69.81X0 Labor and delivery complicated by cord around neck, without compression, not applicable or unspecified; Z37.0 Single live birth; Z3A.39 39 weeks gestation of pregnancy

== ENCOUNTER → 2016-09-24 | Outpatient (CLI) | payer OTHER ==
[~2016-09-24] MED LIST changes: -IBUP600T44 PO; -MAGNSUS5; +MTR600X PO; +PRENTAB26 PO
== END | disposition home or self-care (01) ==
LOC: C.PAPS 09:56
PROVIDERS: ATTEND Obstetrics & Gynecology
DX: Z12.4 Encounter for screening for malignant neoplasm of cervix (principal)